=== PATIENT | female | born 1975 | race Caucasian/White ===

== ENCOUNTER 2019-04-07 16:13 | Emergency (ER) | payer SELFPAY ==
--- NOTE | 2019-04-07 16:57 | ED Physician Documentation ---
Chest Pain - HISTORIAN Historian: patient - HPI Chief Complaint: Chest Pain Onset: days ago (929) Timing: gradual onset Duration: worse Last known Well Date: 04/07/19 Last Known Well Time: 09:30 Last known Well Code/Unknown Code: Known Context: other (at work) Severity: moderate Quality: stabbing Chest Pain Radiation: no radiation Chest Pain Signs/Symptoms: denies: nausea, vomiting, diaphoresis, cool ex tremities, dizziness, tachypnea, tachycardia, hypotension, palpitations, weakness Worsened By: other (movement left arm) Relieved By: nothing Further Comments: yes (44 year old female patient presents with left chest wall pain that started at 0930 this morning. Denies SOB, N/V. C/O left shoulder pain; worse with movement; denies fall or injury.) - ROS CONST: none MS/LYMPH: none GI/: none EYES/ENT: none SKIN/ENDO: none NEURO/PSYCH: none - PAST HX ME risk factors: no pertinent history Surgeries/Procedures: appendectomy Allergies/Adverse Reactions: Allergies Allergy/AdvReac Type Severity Reaction Status Date / Time No Known Allergies Allergy Verified 04/09/15 14:27 Home Medications: Ambulatory Orders Medication Instructions Recorded NK 04/09/15 - SOCIAL HX Smoking History: cigarettes - FAMILY HX Family HX: denies: none - VITAL SIGNS Vital Signs: Vital Signs Temp Pulse Resp BP Pulse Ox 128/68 04/09/15 15:31 - REVIEWED ASSESSMENTS Nursing Assessment Reviewed: Yes Vitals Reviewed: Yes Progress - EKG/XRAY/CT EKG: rhythm (SR, flipped Twave II, III, Avf, V5) ED Results Lab/Radiology - Orders Orders: ED Orders Category Date Time Status Continuous EKG monitoring Q30M Care 04/07/19 16:30 Active Continuous Pulse Oximetry Q30M Care 04/07/19 16:[address] IV Lock 1T Care 04/07/19 16:55 Ordered CBC/PLATELET/DIFF Stat Lab 04/07/19 16:55 Ordered CMP Stat Lab 04/07/19 16:55 Ordered TROPONIN I Stat Lab 04/07/19 16:55 Ordered EKG WITH COMPARISON Stat Ther 04/07/19 16:29 Completed Chest Pain Physical Exam - EXAM General Appearance: no acute distress, alert EENT: eye inspection normal, AVI Respiratory: no resp. distress, nml breath sounds CVS: reg. 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 Return to the ER if you have Chest pain with shortness of breath, nausea and sweating all over. Or pain radiating to jaws or shoulders. Condition: Stable Disposition: 01 HOME, SELF-CARE Decision to Admit: NO Decision Time: 17:36
[2019-04-07 17:08] LABS: BASOPHILS % 0.7 % (0.0-1.5); NEUTROPHILS # 5.6 # k/uL (1.4-7.7)
[2019-04-07 17:21] LABS: eGFR (Non-African) > 60
[2019-04-07] MEDS ORDERED: ACETAMINOPHEN 500 MG TABLET PO ONE (17:34)
[2019-04-07] MEDS ORDERED: KETOROLAC TROMETHAMINE 30 MG/1ML VIAL IVP ONE (17:34)
[2019-04-07] MEDS ORDERED: KETOROLAC TROMETHAMINE 30 MG/1ML VIAL ONE (17:47)
[2019-04-07] MEDS ORDERED: ACETAMINOPHEN 500 MG TABLET ONE (17:47)
[2019-04-07 18:42] VITALS: BP 126/81
== END 2019-04-07 18:38 | disposition home or self-care (01) ==
LOC: ED 16:13
DX: R07.89 Other chest pain (principal)
CPT/HCPCS: 80053; 84484; 85025; 93005; 96374; 99282; 99283; J1885; S1016